=== PATIENT | male | born 1960 ===

== ENCOUNTER 2020-08-11 09:26 | Day surgery (SDC) | payer OTHER ==
[~2020-08-11 09:26] MED LIST: ALTACE10 MG PO; FENOFIBRATE145 MG PO; SIMVASTATIN40 MG PO
[2020-08-11] MEDS ORDERED: 8 HOUR PAIN RE650 M1 PO (17:00)
[2020-08-11] MEDS ORDERED: PERCOCET 5-3251 EACH PO (17:01)
[2020-08-11] MEDS ORDERED: MELOXICAM7.5 MG PO (17:02)
[2020-08-11] MEDS ORDERED: NEURONTIN300 MG PO (17:02)
== END 2020-08-11 22:10 | disposition home or self-care (01) ==
LOC: CIR.AMB 09:26
PROVIDERS: ATTEND Surgery
DX: N52.01 Erectile dysfunction due to arterial insufficiency (principal); N48.6 Induration penis plastica; Z20.828 Contact with and (suspected) exposure to other viral communicable diseases
CPT/HCPCS: 54405; 54112; C1813

== ENCOUNTER 2021-10-26 05:34 | Day surgery (SDC) | payer OTHER ==
[~2021-10-26 05:34] MED LIST changes: +8 HOUR PAIN RE650 M1 PO; +MELOXICAM7.5 MG PO; +NEURONTIN300 MG PO; +PERCOCET 5-3251 EACH PO; +TRICOR PO
[2021-10-26] MEDS ORDERED: TRAMADOL HCL50 MG PO (11:03)
== END 2021-10-26 13:35 | disposition home or self-care (01) ==
LOC: CIR.AMB 05:34
PROVIDERS: ATTEND Surgery
DX: N48.6 Induration penis plastica (principal)